=== PATIENT | male | born 1960 | race Two or more races ===

== ENCOUNTER 2017-12-29 17:49 | Inpatient (IN) | payer MEDICARE, OTHER ==
[~2017-12-29] VITALS: Ht 175.3 cm; Wt 121.6 kg
[2017-12-29 18:30] VITALS: BP 191/132
[2017-12-29] MEDS ORDERED: LORazepam Inj 2mg/ml 1ml IV ONE (18:30)
[2017-12-29] MEDS ORDERED: CLARITIN10 M2 ORAL (19:26)
[2017-12-29] MEDS ORDERED: LOTENSIN40 MG ORAL (19:26)
[2017-12-29] MEDS ORDERED: NICOTINE1 EAC1 TD (19:26)
[2017-12-29] MEDS ORDERED: FLONASE ALLERG9.9 ML NS (19:26)
[2017-12-29] MEDS ORDERED: DIGOXIN125 MCG ORAL (19:26)
[2017-12-29] MEDS ORDERED: SPIRONOLACTONE25 MG ORAL (19:26)
[2017-12-29] MEDS ORDERED: QUETIAPINE FUMA25 MG ORAL (19:26)
[2017-12-29] MEDS ORDERED: POTASSIUM CHLOR8 ME3 PO (19:26)
[2017-12-29] MEDS ORDERED: TRAMADOL HCL50 MG ORAL (19:26)
[2017-12-29] MEDS ORDERED: PROAIR HFA8.5 GM INH (19:26)
[2017-12-29] MEDS ORDERED: DULERA 100 MCG/13 GM INH (19:26)
[2017-12-29] MEDS ORDERED: AZITHROMYCIN250 MG ORAL (19:26)
[2017-12-29] MEDS ORDERED: DUONEB 0.5-3(2.53 ML HHN (19:26)
[2017-12-29] MEDS ORDERED: COREG25 MG ORAL (19:26)
[2017-12-29] MEDS ORDERED: METHADONE HCL10 MG PO (19:26)
[2017-12-29] MEDS ORDERED: HYDRALAZINE HC100 MG ORAL (19:26)
[2017-12-29 19:43] VITALS: BP 186/133
[2017-12-29 19:44] LABS: BASOPHILS % (AUTO) 0.6 % (0.0-2.0); HEMATOCRIT 47.1 % (42.0-52.0); HEMOGLOBIN 15.2 G/DL (14.2-18.0); LYMPHOCYTES % (AUTO) 14.7 % (20.0-45.0); MEAN CORPUSCULAR VOLUME 83 FL (80-99); MONOCYTES % (AUTO) 5.6 % (1.0-10.0); NEUTROPHILS % (AUTO) 78.1 % (45.0-75.0); PLATELET COUNT 258 K/UL (150-450); RED BLOOD COUNT 5.71 M/UL (4.70-6.10); RED CELL DISTRIBUTION WIDTH 14.8 % (11.6-14.8); WHITE BLOOD COUNT 12.7 K/UL (4.8-10.8)
[2017-12-29 19:58] LABS: ANION GAP 10 mmol/L (5-15); BLOOD UREA NITROGEN 30 mg/dL (7-18); CALCIUM 9.4 MG/DL (8.5-10.1); CARBON DIOXIDE 24 MMOL/L (21-32); CHLORIDE 102 MMOL/L (98-107); CREATININE 1.7 MG/DL (0.55-1.30); POTASSIUM 4.3 MMOL/L (3.5-5.1); SODIUM 136 MMOL/L (136-145)
[2017-12-29 20:13] LABS: ALANINE AMINOTRANSFERASE 26 U/L (12-78); ALBUMIN 3.9 G/DL (3.4-5.0); ALBUMIN/GLOBULIN RATIO 0.8 (1.0-2.7); ALKALINE PHOSPHATASE 86 U/L (46-116); ASPARTATE AMINO TRANSFERASE 27 U/L (15-37); BILIRUBIN,TOTAL 1.1 MG/DL (0.2-1.0); CKMB 1.6 NG/ML (0.0-3.6); CREATINE KINASE 316 U/L (26-308)
[2017-12-29 20:22] VITALS: BP 158/133
[2017-12-29 20:22] LABS: BILIRUBIN,DIRECT 0.3 MG/DL (0.0-0.3)
[2017-12-29 21:42] VITALS: BP 149/73
--- NOTE | 2017-12-29 21:45 | Emergency Room Report ---
History of Present Illness General Chief Complaint: Dyspnea/Respdistress Source: Patient, EMS Present Illness HPI 57-year-old male presents ED for evaluation. Patient brought in by EMS complaining of shortness of breath. States started after he smoked cigarette today. Per EMS blood pressure is high. Notes history of hypertension but states he is not compliant with his medications. Denies any chest pain. Denies drug use. No other aggravating relieving factors. Denies any other associated symptoms Allergies: Coded Allergies: No Known Allergies (Unverified , 12/29/17) Patient History Past Medical History: HTN, CHF, psych hx Past Surgical History: none Pertinent Family History: none Social History: Reports: smoking; Denies: alcohol use, drug use Immunizations: UTD Reviewed Nursing Documentation: PMH: Agreed; PSxH: Agreed Nursing Documentation-PMH Hx Cardiac Problems: Yes - CHF Hx Hypertension: Yes History Of Psychiatric Problem: Yes Review of Systems All Other Systems: negative except mentioned in HPI Physical Exam Vital Signs Date Time Temp Pulse Resp B/P (MAP) Pulse Ox O2 Delivery O2 Flow Rate FiO2 12/29/17 17:41 98.7 100 18 200/104 98 Room Air 98.8 12/29/17 19:43 4.0 Sp02 EP Interpretation: reviewed, normal General Appearance: alert, GCS 15, non-toxic, mild distress Head: normocephalic, atraumatic Eyes: bilateral eye normal inspection, bilateral eye PERRL ENT: hearing grossly normal, normal pharynx, no angioedema, normal voice Neck: full range of motion, supple/symm/no masses Respiratory: chest non-tender, decreased breath sounds, crackles, speaking full sentences Cardiovascular #1: regular rate, rhythm, no edema Cardiovascular #2: 2+ carotid (R), 2+ carotid (L), 2+ radial (R), 2+ radial (L) , 2+ dorsalis pedis (R), 2+ dorsalis pedis (L) Gastrointestinal: normal bowel sounds, non tender, soft, non-distended, no guarding, no rebound Rectal: deferred Genitourinary: normal inspection, no CVA tenderness Musculoskeletal: back normal, gait/station normal, normal range of motion, non- tender Neurologic: alert, oriented x3, responsive, motor strength/tone normal, sensory intact, speech normal Psychiatric: judgement/insight normal, memory normal, mood/affect normal, no suicidal/homicidal ideation Reflexes: 3+ bicep (R), 3+ bicep (L), 3+ tricep (R), 3+ tricep (L), 3+ knee (R) , 3+ knee (L) Skin: normal color, no rash, warm/dry, well hydrated Lymphatic: no adenopathy Medical Decision Making Diagnostic Impression: Primary Impression: CHF exacerbation Qualified Codes: I50.9 - Heart failure, unspecified Additional Impressions: Uncontrolled hypertension Renal insufficiency ER Course Hospital Course 57-year-old male presents ED complaining of shortness of breath, BP elevated Differential diagnoses include: TN/unstable angina, contusion, muscle strain, PTX, rib fracture Clinical course Patient placed on stretcher. on manager cardiac cath. After initial history and physical I ordered labs, EKG, chest x-ray labs reviewed- no leukocytosis, hemoglobin/hematocrit stable, creatinine elevated, troponins 0.166, BNP elevated Chest x-ray- pulmonary congestion, cardiomegaly EKG - NSR,no acute ischemic changes interpreted by me denies chest pain. given aspirin. given hydralazine for elevated BP. Lasix given. Case discussed with Dr. Downs and he agreed to accept the patient to his service for further care and support I. I feel this is a highly complex case requiring extensive working including EKG/Rhythm strip, Xray/CT/US, Blood/urine lab work, repeat exams while in ED, and administration of strong opiates/narcotics for pain control, admission to hospital or close patient follow up. Diagnosis - CHF exacerbation, renal insufficiency, uncontrolled hypertension admitted to telemetry in serious condition Labs Test 12/29/17 19:31 White Blood Count 12.7 K/UL (4.8-10.8) Red Blood Count 5.71 M/UL (4.70-6.10) Hemoglobin 15.2 G/DL (14.2-18.0) Hematocrit 47.1 % (42.0-52.0) Mean Corpuscular Volume 83 FL (80-99) Mean Corpuscular Hemoglobin 26.6 PG (27.0-31.0) Mean Corpuscular Hemoglobin Concent 32.2 G/DL (32.0-36.0) Red Cell Distribution Width 14.8 % (11.6-14.8) Platelet Count 258 K/UL (150-450) Mean Platelet Volume 6.8 FL (6.5-10.1) Neutrophils (%) (Auto) 78.1 % (45.0-75.0) Lymphocytes (%) (Auto) 14.7 % (20.0-45.0) Monocytes (%) (Auto) 5.6 % (1.0-10.0) Eosinophils (%) (Auto) 1.0 % (0.0-3.0) Basophils (%) (Auto) 0.6 % (0.0-2.0) Sodium Level 136 MMOL/L (136-145) Potassium Level 4.3 MMOL/L (3.5-5.1) Chloride Level 102 MMOL/L (98-107) Carbon Dioxide Level 24 MMOL/L (21-32) Anion Gap 10 mmol/L (5-15) Blood Urea Nitrogen 30 mg/dL (7-18) Creatinine 1.7 MG/DL (0.55-1.30) Estimat Glomerular Filtration Rate 42.1 mL/min (>60) Glucose Level 117 MG/DL (74-106) Calcium Level 9.4 MG/DL (8.5-10.1) Total Bilirubin 1.1 MG/DL (0.2-1.0) Direct Bilirubin 0.3 MG/DL (0.0-0.3) Aspartate Amino Transf (AST/SGOT) 27 U/L (15-37) Alanine Aminotransferase (ALT/SGPT) 26 U/L (12-78) Alkaline Phosphatase 86 U/L (46-116) Total Creatine Kinase 316 U/L (26-308) Creatine Kinase MB 1.6 NG/ML (0.0-3.6) Creatine Kinase MB Relative Index 0.5 Troponin I 0.166 ng/mL (0.000-0.056) Pro-B-Type Natriuretic Peptide 22699 pg/mL (0-125) Total Protein 8.6 G/DL (6.4-8.2) Albumin 3.9 G/DL (3.4-5.0) Globulin 4.7 g/dL Albumin/Globulin Ratio 0.8 (1.0-2.7) EKG Diagnostic Results Rate: normal Rhythm: NSR ST Segments: no acute changes ASA given to the pt in ED: Yes Rhythm Strip Diag. Results EP Interpretation: yes Rhythm: NSR, no PVC's, no ectopy Chest X-Ray Diagnostic Results Chest X-Ray Diagnostic Results : Chest X-Ray Ordered: Yes # of Views/Limited/Complete: 1 View Indication: Shortness of Breath EP Interpretation: Yes Interpretation: no pneumothorax, other - cardiomegaly. bilateral pulmonary congestion Impression: Other - chf exacerbation Electronically Signed by: Electronically signed by Lee Sheffield MD Last Vital Signs Date Time Temp Pulse Resp B/P (MAP) Pulse Ox O2 Delivery O2 Flow Rate FiO2 12/29/17 21:15 155/98 12/29/17 20:22 98.6 94 40 96 Nasal Cannula 4.0 98.6 97 Status: improved Disposition: ADMITTED INPATIENT Condition: Serious Referrals: NON PHYSICIAN (PCP) Lee Sheffield MD Dec 29, 2017 21:45
[2017-12-29 22:30] VITALS: BP 110/91
[2017-12-29] MEDS ORDERED: Albuterol 90mcg Inhaler 8gm INH PRN (23:00)
[2017-12-29] MEDS ORDERED: Albuterol/Ipratropium 3ml neb HHN PRN (23:00)
[2017-12-29] MEDS ORDERED: Hydromorphone 0.5mg/0.5ml inj IVP PRN (23:30)
[2017-12-29] MEDS ORDERED: DiphenhydrAMINE 50mg/ml Inj IVP PRN (23:30)
[2017-12-29] MEDS ORDERED: traMADol 50mg tab ORAL PRN (23:45)
[2017-12-30] VITALS: BP 163/117
[2017-12-30] MEDS ORDERED: Ipratropium 0.02% Inh Soln 2.5ml UD HHN SCH (01:00)
[2017-12-30 04:00] VITALS: BP 149/115
[2017-12-30] MEDS: HydrALAZINE 50mg tab ORAL SCH ×3 (06:14→21:52)
[2017-12-30 08:00] VITALS: BP 131/83
[2017-12-30 08:03] LABS: BASOPHILS % (AUTO) 0.6 % (0.0-2.0); EOSINOPHILS % (AUTO) 3.3 % (0.0-3.0); HEMATOCRIT 42.9 % (42.0-52.0); HEMOGLOBIN 14.3 G/DL (14.2-18.0); LYMPHOCYTES % (AUTO) 21.6 % (20.0-45.0); MEAN CORPUSCULAR VOLUME 82 FL (80-99); MONOCYTES % (AUTO) 9.5 % (1.0-10.0); PLATELET COUNT 251 K/UL (150-450); RED BLOOD COUNT 5.22 M/UL (4.70-6.10); RED CELL DISTRIBUTION WIDTH 14.9 % (11.6-14.8); WHITE BLOOD COUNT 10.1 K/UL (4.8-10.8)
[2017-12-30] MEDS: Azithromycin 250mg tab ORAL SCH (08:40)
[2017-12-30] MEDS: Spironolactone 25mg tab ORAL SCH (08:40)
[2017-12-30] MEDS: Heparin 5000 units/ml inj SUBQ SCH ×3 (08:51→18:00)
[2017-12-30] MEDS ORDERED: Carvedilol 25mg Tab ORAL SCH (09:00)
[2017-12-30] MEDS: Flonase Nasal Inhaler 16gm NASAL SCH (09:11)
--- NOTE | 2017-12-30 09:24 | Cardiac Electrophysiology PN ---
Subjective Subjective [id number] Objective Last 24 Hour Vital Signs Date Time Temp Pulse Resp B/P (MAP) Pulse Ox O2 Delivery O2 Flow Rate FiO2 12/30/17 08:41 92 12/30/17 08:41 90 149/115 12/30/17 08:41 149/115 12/30/17 07:35 97 Nasal Cannula 2.0 28 12/30/17 07:35 90 20 Nasal Cannula 2.0 28 12/30/17 07:35 Nasal Cannula 2.0 28 12/30/17 06:14 149/115 12/30/17 04:00 88 12/30/17 04:00 98.2 75 20 149/115 90 Nasal Cannula 3.0 98.2 12/30/17 00:00 95.2 92 20 163/117 96 Nasal Cannula 3.0 95.2 12/30/17 00:00 82 12/29/17 23:37 88 20 99 Nasal Cannula 2.0 28 12/29/17 23:27 Nasal Cannula 2.0 28 12/29/17 23:27 87 20 97 Nasal Cannula 2.0 28 12/29/17 23:27 97 Nasal Cannula 2.0 28 12/29/17 23:27 87 20 Nasal Cannula 2.0 28 12/29/17 22:46 91 12/29/17 22:36 98.0 104 19 132/61 97 Nasal Cannula 4.0 98.0 89 94 12/29/17 22:30 98.2 89 20 110/91 95 Nasal Cannula 3.0 98.2 12/29/17 21:42 98.0 89 19 149/73 97 Nasal Cannula 98.0 12/29/17 21:15 155/98 12/29/17 20:22 98.6 94 40 158/133 96 Nasal Cannula 4.0 98.6 97 12/29/17 19:43 97 Nasal Cannula 4.0 12/29/17 19:43 98.6 97 40 186/133 89 Nasal Cannula 98.6 12/29/17 18:30 98.6 104 31 191/132 93 Room Air 98.6 12/29/17 18:30 104 31 Room Air 12/29/17 17:41 98.7 100 18 200/104 98 Room Air 98.8 Intake and Output 12/29/17 12/30/17 19:00 07:00 Intake Total 0 ml 0 ml Output Total 400 ml Balance 0 ml -400 ml Intake Oral 0 ml 0 ml Output Urine Total 400 ml # Voids 6 Laboratory Tests Test 12/29/17 19:31 12/29/17 21:24 12/30/17 07:10 White Blood Count 12.7 K/UL (4.8-10.8) H 10.1 K/UL (4.8-10.8) Red Blood Count 5.71 M/UL (4.70-6.10) 5.22 M/UL (4.70-6.10) Hemoglobin 15.2 G/DL (14.2-18.0) 14.3 G/DL (14.2-18.0) Hematocrit 47.1 % (42.0-52.0) 42.9 % (42.0-52.0) Mean Corpuscular Volume 83 FL (80-99) 82 FL (80-99) Mean Corpuscular Hemoglobin 26.6 PG (27.0-31.0) L 27.3 PG (27.0-31.0) Mean Corpuscular Hemoglobin Concent 32.2 G/DL (32.0-36.0) 33.2 G/DL (32.0-36.0) Red Cell Distribution Width 14.8 % (11.6-14.8) 14.9 % (11.6-14.8) H Platelet Count 258 K/UL (150-450) 251 K/UL (150-450) Mean Platelet Volume 6.8 FL (6.5-10.1) 7.0 FL (6.5-10.1) Neutrophils (%) (Auto) 78.1 % (45.0-75.0) H 65.0 % (45.0-75.0) Lymphocytes (%) (Auto) 14.7 % (20.0-45.0) L 21.6 % (20.0-45.0) Monocytes (%) (Auto) 5.6 % (1.0-10.0) 9.5 % (1.0-10.0) Eosinophils (%) (Auto) 1.0 % (0.0-3.0) 3.3 % (0.0-3.0) H Basophils (%) (Auto) 0.6 % (0.0-2.0) 0.6 % (0.0-2.0) Sodium Level 136 MMOL/L (136-145) Potassium Level 4.3 MMOL/L (3.5-5.1) Chloride Level 102 MMOL/L (98-107) Carbon Dioxide Level 24 MMOL/L (21-32) Anion Gap 10 mmol/L (5-15) Blood Urea Nitrogen 30 mg/dL (7-18) H Creatinine 1.7 MG/DL (0.55-1.30) H Estimat Glomerular Filtration Rate 42.1 mL/min (>60) Glucose Level 117 MG/DL (74-106) H Calcium Level 9.4 MG/DL (8.5-10.1) Total Bilirubin 1.1 MG/DL (0.2-1.0) H Direct Bilirubin 0.3 MG/DL (0.0-0.3) Aspartate Amino Transf (AST/SGOT) 27 U/L (15-37) Alanine Aminotransferase (ALT/SGPT) 26 U/L (12-78) Alkaline Phosphatase 86 U/L (46-116) Total Creatine Kinase 316 U/L (26-308) H Creatine Kinase MB 1.6 NG/ML (0.0-3.6) Creatine Kinase MB Relative Index 0.5 Troponin I 0.166 ng/mL (0.000-0.056) 0.184 ng/mL (0.000-0.056) Pro-B-Type Natriuretic Peptide 15755 pg/mL (0-125) H 65859 pg/mL (0-125) H Total Protein 8.6 G/DL (6.4-8.2) H Albumin 3.9 G/DL (3.4-5.0) Globulin 4.7 g/dL Albumin/Globulin Ratio 0.8 (1.0-2.7) L Urine Opiates Screen Negative (NEGATIVE) Urine Barbiturates Screen Negative (NEGATIVE) Phencyclidine (PCP) Screen Negative (NEGATIVE) Urine Amphetamines Screen Negative (NEGATIVE) Urine Benzodiazepines Screen Negative (NEGATIVE) Urine Cocaine Screen Positive (NEGATIVE) H Urine Marijuana (THC) Screen Negative (NEGATIVE) Iron Gannon MD Dec 30, 2017 09:23
--- NOTE | 2017-12-30 10:16 | History and Physical ---
History of Present Illness General Date patient seen: Dec 30, 2017 Time patient seen: 10:16 Reason for Hospitalization: Dyspnea/Respdistress Present Illness HPI 57y/o male with pmh of HTN, CHF, substance abuse, opioid dependence who presents with SOB. Pt is poor historian. Pt states symptoms started after smoking cigarettes yesterday. Pt non-compliant with medications. Also noted intermittent chest pain on presentation, but currently declines. Denies f/c, n/v , d/c, abd pain, cough. +BLE swelling, orthopnea, PND. C/o bleeding lesion on roof of mouth. In ED, pt noted to be in CHF w/ BNP 16,000's and CXR w/ PVC. Pt given lasix IV. SBP 200s, given hydralazine IV. Also w/ elevated troponin and given ASA 325mg. Utox + for cocaine Allergies: Coded Allergies: No Known Allergies (Unverified , 12/29/17) Medication History Scheduled Albuterol Sulfate* (Proair Hfa*), 1 PUFF INH Q6H, (Reported) Azithromycin* (Zithromax*), 250 MG ORAL DAILY, (Reported) Benazepril Hcl* (Lotensin*), 40 MG ORAL DAILY, (Reported) Carvedilol (Coreg), 25 MG ORAL EVERY 12 HOURS, (Reported) Digoxin* (Digoxin*), 250 MCG ORAL DAILY, (Reported) Hydralazine Hcl* (Hydralazine Hcl*), 100 MG ORAL EVERY 8 HOURS, (Reported) Loratadine (Claritin), 10 MG ORAL DAILY, (Reported) Methadone Hcl* (Methadone*), 10 MG PO DAILY, (Reported) Mometasone/Formoterol (Dulera 100 Mcg/5 Mcg Inhaler), 2 PUFFS INH EVERY 12 HOURS , (Reported) Quetiapine Fumarate* (Seroquel*), 50 MG ORAL BEDTIME, (Reported) Spironolactone* (Aldactone*), 25 MG ORAL DAILY, (Reported) Scheduled PRN Tramadol Hcl* (Ultram*), 50 MG ORAL Q6H PRN for For Pain, (Reported) Miscellaneous Medications Fluticasone Propionate (Flonase Allergy Relief), 9.9 ML NS, (Reported) Ipratropium/Albuterol Sulfate (DuoNeb 0.5-3(2.5)mg/3ml), 3 ML HHN, (Reported) Nicotine (Nicotine), 1 EACH TD, (Reported) Potassium Chloride (Potassium Chloride), 20 MEQ PO, (Reported) Patient History History Provided By: Patient, Medical Record Healthcare decision maker Resuscitation status Full Code Advanced Directive on File Past Medical/Surgical History Past Medical/Surgical History: (1) Substance abuse (2) Tobacco abuse (3) HTN (hypertension) (4) CHF (congestive heart failure) Family History Family History: Patient reports no known family medical history. Social History Social History: (1) Smokes 1ppd x 44 years and now cut down to 3cig/d per pt (2) Pt states he used cocaine 3 week ago but tells another provider he used it 2 days ago (3) Lives with family Review of Systems Constitutional: Reports: weakness Eye: Reports: no symptoms ENT: Reports: no symptoms Respiratory: Reports: shortness of breath Cardiovascular: Reports: chest pain, edema Gastrointestinal: Reports: no symptoms Genitourinary: Reports: no symptoms Musculoskeletal: Reports: no symptoms Skin: Reports: no symptoms Psychiatric: Reports: no symptoms Neurological: Reports: no symptoms Endocrine: Reports: no symptoms Hematologic/Lymphatic: Reports: no symptoms Physical Exam Physical Exam Narrative General: alert, cooperative, no distress, appears stated age Head: normocephalic, without obvious abnormality, atraumatic Eyes: conjunctivae/corneas clear. PERRL, EOM's intact Throat: lips, mucosa, and tongue normal. MMM Neck: supple, symmetrical, trachea midline, and +JVD Lungs: +crackles b/l Heart: regular rate and rhythm, S1, S2 normal, no murmur, click, rub or gallop Abdomen: soft, non-tender, non-distended, bowel sounds normal; Extremities: extremities normal, atraumatic, no cyanosis, 1-2+ BLE pitting edema Pulses: 2+ and symmetric Skin: skin color, texture, turgor normal; no rashes or lesions Neurologic: grossly normal, no focal deficits Last 24 Hour Vital Signs Date Time Temp Pulse Resp B/P (MAP) Pulse Ox O2 Delivery O2 Flow Rate FiO2 12/30/17 08:41 92 12/30/17 08:41 90 149/115 12/30/17 08:41 149/115 12/30/17 08:00 89 12/30/17 08:00 98.1 95 20 131/83 92 Nasal Cannula 3.0 98.1 12/30/17 07:35 97 Nasal Cannula 2.0 28 12/30/17 07:35 90 20 Nasal Cannula 2.0 28 12/30/17 07:35 Nasal Cannula 2.0 28 12/30/17 06:14 149/115 12/30/17 04:00 88 12/30/17 04:00 98.2 75 20 149/115 90 Nasal Cannula 3.0 98.2 12/30/17 00:00 95.2 92 20 163/117 96 Nasal Cannula 3.0 95.2 12/30/17 00:00 82 12/29/17 23:37 88 20 99 Nasal Cannula 2.0 28 12/29/17 23:27 Nasal Cannula 2.0 28 12/29/17 23:27 87 20 97 Nasal Cannula 2.0 28 12/29/17 23:27 97 Nasal Cannula 2.0 28 12/29/17 23:27 87 20 Nasal Cannula 2.0 28 12/29/17 22:46 91 12/29/17 22:36 98.0 104 19 132/61 97 Nasal Cannula 4.0 98.0 89 94 12/29/17 22:30 98.2 89 20 110/91 95 Nasal Cannula 3.0 98.2 12/29/17 21:42 98.0 89 19 149/73 97 Nasal Cannula 98.0 12/29/17 21:15 155/98 12/29/17 20:22 98.6 94 40 158/133 96 Nasal Cannula 4.0 98.6 97 12/29/17 19:43 97 Nasal Cannula 4.0 12/29/17 19:43 98.6 97 40 186/133 89 Nasal Cannula 98.6 12/29/17 18:30 98.6 104 31 191/132 93 Room Air 98.6 12/29/17 18:30 104 31 Room Air 12/29/17 17:41 98.7 100 18 200/104 98 Room Air 98.8 Intake and Output 12/29/17 12/30/17 19:00 07:00 Intake Total 0 ml 0 ml Output Total 400 ml Balance 0 ml -400 ml Intake Oral 0 ml 0 ml Output Urine Total 400 ml # Voids 6 Laboratory Tests Test 12/29/17 19:31 12/29/17 21:24 12/30/17 07:10 White Blood Count 12.7 K/UL (4.8-10.8) H 10.1 K/UL (4.8-10.8) Red Blood Count 5.71 M/UL (4.70-6.10) 5.22 M/UL (4.70-6.10) Hemoglobin 15.2 G/DL (14.2-18.0) 14.3 G/DL (14.2-18.0) Hematocrit 47.1 % (42.0-52.0) 42.9 % (42.0-52.0) Mean Corpuscular Volume 83 FL (80-99) 82 FL (80-99) Mean Corpuscular Hemoglobin 26.6 PG (27.0-31.0) L 27.3 PG (27.0-31.0) Mean Corpuscular Hemoglobin Concent 32.2 G/DL (32.0-36.0) 33.2 G/DL (32.0-36.0) Red Cell Distribution Width 14.8 % (11.6-14.8) 14.9 % (11.6-14.8) H Platelet Count 258 K/UL (150-450) 251 K/UL (150-450) Mean Platelet Volume 6.8 FL (6.5-10.1) 7.0 FL (6.5-10.1) Neutrophils (%) (Auto) 78.1 % (45.0-75.0) H 65.0 % (45.0-75.0) Lymphocytes (%) (Auto) 14.7 % (20.0-45.0) L 21.6 % (20.0-45.0) Monocytes (%) (Auto) 5.6 % (1.0-10.0) 9.5 % (1.0-10.0) Eosinophils (%) (Auto) 1.0 % (0.0-3.0) 3.3 % (0.0-3.0) H Basophils (%) (Auto) 0.6 % (0.0-2.0) 0.6 % (0.0-2.0) Sodium Level 136 MMOL/L (136-145) Potassium Level 4.3 MMOL/L (3.5-5.1) Chloride Level 102 MMOL/L (98-107) Carbon Dioxide Level 24 MMOL/L (21-32) Anion Gap 10 mmol/L (5-15) Blood Urea Nitrogen 30 mg/dL (7-18) H Creatinine 1.7 MG/DL (0.55-1.30) H Estimat Glomerular Filtration Rate 42.1 mL/min (>60) Glucose Level 117 MG/DL (74-106) H Calcium Level 9.4 MG/DL (8.5-10.1) Total Bilirubin 1.1 MG/DL (0.2-1.0) H Direct Bilirubin 0.3 MG/DL (0.0-0.3) Aspartate Amino Transf (AST/SGOT) 27 U/L (15-37) Alanine Aminotransferase (ALT/SGPT) 26 U/L (12-78) Alkaline Phosphatase 86 U/L (46-116) Total Creatine Kinase 316 U/L (26-308) H Creatine Kinase MB 1.6 NG/ML (0.0-3.6) Creatine Kinase MB Relative Index 0.5 Troponin I 0.166 ng/mL (0.000-0.056) 0.184 ng/mL (0.000-0.056) Pro-B-Type Natriuretic Peptide 23803 pg/mL (0-125) H 63060 pg/mL (0-125) H Total Protein 8.6 G/DL (6.4-8.2) H Albumin 3.9 G/DL (3.4-5.0) Globulin 4.7 g/dL Albumin/Globulin Ratio 0.8 (1.0-2.7) L Urine Opiates Screen Negative (NEGATIVE) Urine Barbiturates Screen Negative (NEGATIVE) Phencyclidine (PCP) Screen Negative (NEGATIVE) Urine Amphetamines Screen Negative (NEGATIVE) Urine Benzodiazepines Screen Negative (NEGATIVE) Urine Cocaine Screen Positive (NEGATIVE) H Urine Marijuana (THC) Screen Negative (NEGATIVE) Height (Feet): 5 Height (Inches): 9.00 Weight (Pounds): 268 Medications Current Medications Medications (Trade) Dose Ordered Sig/Nathan Route PRN Reason Start Time Stop Time Status Last Admin Dose Admin Acetaminophen (Tylenol) 650 mg Q6H PRN ORAL Mild Pain/Temp > 100.5 12/29/17 23:15 01/28/18 23:14 Albuterol Sulfate (Proventil MDI) 1 puff Q6HR PRN INH Shortness of Breath 12/29/17 23:00 01/28/18 22:59 Albuterol/ Ipratropium (Albuterol/ Ipratropium) 3 ml Q6HR PRN HHN Shortness of Breath 12/29/17 23:00 01/03/18 22:59 12/29/17 23:27 Amlodipine Besylate (Norvasc) 10 mg DAILY ORAL 12/31/17 09:00 01/30/18 08:59 Aspirin (ASA) 325 mg DAILY ORAL 12/30/17 09:00 01/29/18 08:59 12/30/17 08:41 Azithromycin (Zithromax) 250 mg DAILY ORAL 12/30/17 09:00 01/06/18 08:59 12/30/17 08:40 Benazepril HCl (Lotensin) 40 mg DAILY ORAL 12/30/17 09:00 01/29/18 08:59 12/30/17 08:41 Digoxin (Lanoxin) 0.25 mg DAILY ORAL 12/30/17 09:00 01/29/18 08:59 12/30/17 08:41 Diphenhydramine HCl (Benadryl) 25 mg Q6H PRN IVP Itching 12/29/17 23:30 01/28/18 23:29 Fexofenadine HCl (Paige) 60 mg TWICE A DAY ORAL 12/30/17 09:00 01/29/18 08:59 12/30/17 09:11 Fluticasone Propionate (Flonase) 2 spray DAILY NASAL 12/30/17 09:00 01/29/18 08:59 12/30/17 09:11 Heparin Sodium (Porcine) (Heparin 5000 units/ml) 5,000 units TID SUBQ 12/30/17 09:00 01/29/18 08:59 12/30/17 08:51 Hydralazine HCl (Apresoline) 10 mg Q2H PRN IV For High Blood Pressure 12/30/17 09:30 01/29/18 09:29 Hydralazine HCl (Apresoline) 100 mg Q8HR ORAL 12/30/17 06:00 01/29/18 05:59 12/30/17 06:14 Hydromorphone HCl (Dilaudid) 0.5 mg Q4H PRN IVP For Moderate to Severe Pain 12/29/17 23:30 01/05/18 23:29 Methadone HCl (Methadone HCl) 10 mg DAILY ORAL 12/30/17 09:00 01/06/18 08:59 12/30/17 08:40 Mometasone Furoate (Elocon) 2 applic Q12HR TOPIC 12/30/17 09:00 01/29/18 08:59 12/30/17 09:11 Nicotine (Nicoderm) 1 patch Q24H TDERMAL 12/30/17 01:00 01/29/18 00:59 12/30/17 02:06 Ondansetron HCl (Zofran) 4 mg Q8HR PRN IVP Nausea & Vomiting 12/29/17 23:15 01/28/18 23:14 Potassium Chloride (K-Dur) 20 meq DAILY ORAL 12/30/17 09:00 01/29/18 08:59 12/30/17 08:40 Quetiapine Fumarate (SEROquel) 50 mg BEDTIME ORAL 12/30/17 21:00 01/29/18 20:59 Spironolactone (Aldactone) 25 mg DAILY ORAL 12/30/17 09:00 01/29/18 08:59 12/30/17 08:40 Tramadol HCl (Ultram) 50 mg Q6H PRN ORAL pain 12/29/17 23:45 01/05/18 23:44 Assessment/Plan Problem List: (1) Acute on chronic combined systolic and diastolic heart failure ICD Codes: I50.43 - Acute on chronic combined systolic (congestive) and diastolic (congestive) heart failure SNOMED: 972200486741382 (2) NSTEMI (non-ST elevated myocardial infarction) ICD Codes: I21.4 - Non-ST elevation (NSTEMI) myocardial infarction SNOMED: 210827228 (3) Hypertensive urgency ICD Codes: I16.0 - Hypertensive urgency SNOMED: 989188744 (4) JAMIE vs JAMIE on CKD (unclear baseline SCr) (5) Cardiorenal syndrome ICD Codes: I13.10 - Hypertensive heart and chronic kidney disease without heart failure, with stage 1 through stage 4 chronic kidney disease, or unspecified chronic kidney disease SNOMED: 428890294 (6) Cocaine abuse Assessment & Plan: Utox + for cocaine ICD Codes: F14.10 - Cocaine abuse, uncomplicated SNOMED: 17409962 (7) Mass of oral cavity ICD Codes: K13.70 - Unspecified lesions of oral mucosa SNOMED: 241315576 (8) Hypertensive heart disease ICD Codes: I11.9 - Hypertensive heart disease without heart failure SNOMED: 41705363 Status: stable Assessment/Plan Admit to tele Cardiology consulted Trend trop/EKG Check TTE ASA, statin Check A1C, lipid panel, TSH Diurese w/ lasix 40mg IV BID Strict I/O's, daily weights Monitor lytes and replete Trend SCr closely Cont home aldactone, ACEI, digoxin Check BLE venous duplex Surgery consulted given bleeding lesion on roof of mouth Pain control, bowel regimen Supportive care Maintenance Plumber on tobacco and cocaine cessation CHF education prior to d/c Maintenance Plumber on medication compliance DVT Prophylaxis: SCD, HSQ Code Status: Full Hospital Classification Declaration: Based on this initial evaluation, and depending on the patient's clinical course, I anticipate that this patient will require hospitalization for 2-3 days for CHF and close respiratory/hemodynamic monitoring. Disposition: Once the patient is stable to leave the hospital, I anticipate the patient will likely be discharged to the following environment: home with HH vs SNF I spent 71 minutes on this patient's case, and >50% was dedicated to counseling and/or care coordination. Discussed with patient/family, nursing staff, SW/CM, cardiology regarding clinical status, treatment course, and disposition planning. Time of note may not reflect time of encounter. Marietta Nicolas M.D. Dec 30, 2017 10:16
[2017-12-30 12:00] VITALS: BP 111/72
--- NOTE | 2017-12-30 12:53 | Diagnostic Imaging Report ---
Indication: Dyspnea Comparison: None A single view chest radiograph was obtained. Findings: Interstitial edema demonstrated with cardiomegaly. Bones are unremarkable. IMPRESSION: CHF
[2017-12-30 16:00] VITALS: BP 110/72
--- NOTE | 2017-12-30 17:44 | Consultation ---
History of Present Illness General Date patient seen: Dec 30, 2017 Chief Complaint: Dyspnea/Respdistress Reason for Consultation: bleeding fungating mass in mouth Present Illness HPI 57 year old male [place] [facility] [place] after acute onset of SOB/ dyspnea. Please refer to admission notes for details. During admission complaining of bleeding in mouth and a palpable mass which causes discomfort. Seen by PCP and noted to be a bleeding fungating mass on soft palate. Surgery called to evaluate. patient otherwise well and SOB improving. heavy tobacco history. Allergies: Coded Allergies: No Known Allergies (Unverified , 12/29/17) Medication History Scheduled Albuterol Sulfate* (Proair Hfa*), 1 PUFF INH Q6H, (Reported) Azithromycin* (Zithromax*), 250 MG ORAL DAILY, (Reported) Benazepril Hcl* (Lotensin*), 40 MG ORAL DAILY, (Reported) Carvedilol (Coreg), 25 MG ORAL EVERY 12 HOURS, (Reported) Digoxin* (Digoxin*), 250 MCG ORAL DAILY, (Reported) Hydralazine Hcl* (Hydralazine Hcl*), 100 MG ORAL EVERY 8 HOURS, (Reported) Loratadine (Claritin), 10 MG ORAL DAILY, (Reported) Methadone Hcl* (Methadone*), 10 MG PO DAILY, (Reported) Mometasone/Formoterol (Dulera 100 Mcg/5 Mcg Inhaler), 2 PUFFS INH EVERY 12 HOURS , (Reported) Quetiapine Fumarate* (Seroquel*), 50 MG ORAL BEDTIME, (Reported) Spironolactone* (Aldactone*), 25 MG ORAL DAILY, (Reported) Scheduled PRN Tramadol Hcl* (Ultram*), 50 MG ORAL Q6H PRN for For Pain, (Reported) Miscellaneous Medications Fluticasone Propionate (Flonase Allergy Relief), 9.9 ML NS, (Reported) Ipratropium/Albuterol Sulfate (DuoNeb 0.5-3(2.5)mg/3ml), 3 ML HHN, (Reported) Nicotine (Nicotine), 1 EACH TD, (Reported) Potassium Chloride (Potassium Chloride), 20 MEQ PO, (Reported) Patient History History Provided By: Patient, Medical Record, PMD Healthcare decision maker Resuscitation status Full Code Advanced Directive on File Past Medical/Surgical History Past Medical/Surgical History: (1) Mass of oral cavity (2) SOB (shortness of breath) (3) CHF (congestive heart failure) (4) Renal insufficiency (5) CHF exacerbation (6) Uncontrolled hypertension Review of Systems All Other Systems: negative except mentioned in HPI Physical Exam General Appearance: no apparent distress, alert Lines, tubes and drains: peripheral HEENT: normocephalic, mucous membranes moist, other - 1cm fungating mass noted in midline soft palate oozing blood and friable. Neck: non-tender, normal alignment, other - no lymphadenopathy. Respiratory/Chest: no respiratory distress, no accessory muscle use Cardiovascular/Chest: normal peripheral pulses, normal rate Abdomen: normal bowel sounds, non tender, soft, no organomegaly, no mass Extremities: normal range of motion, non-tender, normal inspection, no calf tenderness Skin Exam: normal pigmentation, warm/dry Neurologic: alert, oriented x 3 Physical Exam Narrative full skin exam performed and head and neck exam performed and other than above normal Last 24 Hour Vital Signs Date Time Temp Pulse Resp B/P (MAP) Pulse Ox O2 Delivery O2 Flow Rate FiO2 12/30/17 16:00 97.9 68 19 110/72 97 Nasal Cannula 3.0 97.9 12/30/17 13:40 123/72 12/30/17 12:00 76 12/30/17 12:00 97.9 91 20 111/72 96 Nasal Cannula 3.0 97.9 12/30/17 08:41 92 12/30/17 08:41 90 149/115 12/30/17 08:41 149/115 12/30/17 08:00 89 12/30/17 08:00 98.1 95 20 131/83 92 Nasal Cannula 3.0 98.1 12/30/17 07:35 97 Nasal Cannula 2.0 28 12/30/17 07:35 90 20 Nasal Cannula 2.0 28 12/30/17 07:35 Nasal Cannula 2.0 28 12/30/17 06:14 149/115 12/30/17 04:00 88 12/30/17 04:00 98.2 75 20 149/115 90 Nasal Cannula 3.0 98.2 12/30/17 00:00 95.2 92 20 163/117 96 Nasal Cannula 3.0 95.2 12/30/17 00:00 82 12/29/17 23:37 88 20 99 Nasal Cannula 2.0 28 12/29/17 23:27 Nasal Cannula 2.0 28 12/29/17 23:27 87 20 97 Nasal Cannula 2.0 28 12/29/17 23:27 97 Nasal Cannula 2.0 28 12/29/17 23:27 87 20 Nasal Cannula 2.0 28 12/29/17 22:46 91 12/29/17 22:36 98.0 104 19 132/61 97 Nasal Cannula 4.0 98.0 89 94 12/29/17 22:30 98.2 89 20 110/91 95 Nasal Cannula 3.0 98.2 12/29/17 21:42 98.0 89 19 149/73 97 Nasal Cannula 98.0 12/29/17 21:15 155/98 12/29/17 20:22 98.6 94 40 158/133 96 Nasal Cannula 4.0 98.6 97 12/29/17 19:43 97 Nasal Cannula 4.0 12/29/17 19:43 98.6 97 40 186/133 89 Nasal Cannula 98.6 12/29/17 18:30 98.6 104 31 191/132 93 Room Air 98.6 12/29/17 18:30 104 31 Room Air 12/29/17 17:41 98.7 100 18 200/104 98 Room Air 98.8 Intake and Output 12/29/17 12/30/17 19:00 07:00 Intake Total 0 ml 0 ml Output Total 400 ml Balance 0 ml -400 ml Intake Oral 0 ml 0 ml Output Urine Total 400 ml # Voids 6 Laboratory Tests Test 12/29/17 19:31 12/29/17 21:24 12/30/17 07:10 12/30/17 11:53 White Blood Count 12.7 K/UL (4.8-10.8) H 10.1 K/UL (4.8-10.8) Red Blood Count 5.71 M/UL (4.70-6.10) 5.22 M/UL (4.70-6.10) Hemoglobin 15.2 G/DL (14.2-18.0) 14.3 G/DL (14.2-18.0) Hematocrit 47.1 % (42.0-52.0) 42.9 % (42.0-52.0) Mean Corpuscular Volume 83 FL (80-99) 82 FL (80-99) Mean Corpuscular Hemoglobin 26.6 PG (27.0-31.0) L 27.3 PG (27.0-31.0) Mean Corpuscular Hemoglobin Concent 32.2 G/DL (32.0-36.0) 33.2 G/DL (32.0-36.0) Red Cell Distribution Width 14.8 % (11.6-14.8) 14.9 % (11.6-14.8) H Platelet Count 258 K/UL (150-450) 251 K/UL (150-450) Mean Platelet Volume 6.8 FL (6.5-10.1) 7.0 FL (6.5-10.1) Neutrophils (%) (Auto) 78.1 % (45.0-75.0) H 65.0 % (45.0-75.0) Lymphocytes (%) (Auto) 14.7 % (20.0-45.0) L 21.6 % (20.0-45.0) Monocytes (%) (Auto) 5.6 % (1.0-10.0) 9.5 % (1.0-10.0) Eosinophils (%) (Auto) 1.0 % (0.0-3.0) 3.3 % (0.0-3.0) H Basophils (%) (Auto) 0.6 % (0.0-2.0) 0.6 % (0.0-2.0) Sodium Level 136 MMOL/L (136-145) Potassium Level 4.3 MMOL/L (3.5-5.1) Chloride Level 102 MMOL/L (98-107) Carbon Dioxide Level 24 MMOL/L (21-32) Anion Gap 10 mmol/L (5-15) Blood Urea Nitrogen 30 mg/dL (7-18) H Creatinine 1.7 MG/DL (0.55-1.30) H Estimat Glomerular Filtration Rate 42.1 mL/min (>60) Glucose Level 117 MG/DL (74-106) H Calcium Level 9.4 MG/DL (8.5-10.1) Total Bilirubin 1.1 MG/DL (0.2-1.0) H Direct Bilirubin 0.3 MG/DL (0.0-0.3) Aspartate Amino Transf (AST/SGOT) 27 U/L (15-37) Alanine Aminotransferase (ALT/SGPT) 26 U/L (12-78) Alkaline Phosphatase 86 U/L (46-116) Total Creatine Kinase 316 U/L (26-308) H Creatine Kinase MB 1.6 NG/ML (0.0-3.6) Creatine Kinase MB Relative Index 0.5 Troponin I 0.166 ng/mL (0.000-0.056) 0.184 ng/mL (0.000-0.056) 0.140 ng/mL (0.000-0.056) Pro-B-Type Natriuretic Peptide 94987 pg/mL (0-125) H 69474 pg/mL (0-125) H Total Protein 8.6 G/DL (6.4-8.2) H Albumin 3.9 G/DL (3.4-5.0) Globulin 4.7 g/dL Albumin/Globulin Ratio 0.8 (1.0-2.7) L Urine Opiates Screen Negative (NEGATIVE) Urine Barbiturates Screen Negative (NEGATIVE) Phencyclidine (PCP) Screen Negative (NEGATIVE) Urine Amphetamines Screen Negative (NEGATIVE) Urine Benzodiazepines Screen Negative (NEGATIVE) Urine Cocaine Screen Positive (NEGATIVE) H Urine Marijuana (THC) Screen Negative (NEGATIVE) Height (Feet): 5 Height (Inches): 9.00 Weight (Pounds): 268 Medications Current Medications Medications (Trade) Dose Ordered Sig/Nathan Route PRN Reason Start Time Stop Time Status Last Admin Dose Admin Acetaminophen (Tylenol) 650 mg Q6H PRN ORAL Mild Pain/Temp > 100.5 12/29/17 23:15 01/28/18 23:14 Albuterol Sulfate (Proventil MDI) 1 puff Q6HR PRN INH Shortness of Breath 12/29/17 23:00 01/28/18 22:59 Albuterol/ Ipratropium (Albuterol/ Ipratropium) 3 ml Q6HR PRN HHN Shortness of Breath 12/29/17 23:00 01/03/18 22:59 12/29/17 23:27 Amlodipine Besylate (Norvasc) 10 mg DAILY ORAL 12/31/17 09:00 01/30/18 08:59 Aspirin (ASA) 325 mg DAILY ORAL 12/30/17 09:00 01/29/18 08:59 12/30/17 08:41 Azithromycin (Zithromax) 250 mg DAILY ORAL 12/30/17 09:00 01/06/18 08:59 12/30/17 08:40 Benazepril HCl (Lotensin) 40 mg DAILY ORAL 12/30/17 09:00 01/29/18 08:59 12/30/17 08:41 Digoxin (Lanoxin) 0.25 mg DAILY ORAL 12/30/17 09:00 01/29/18 08:59 12/30/17 08:41 Diphenhydramine HCl (Benadryl) 25 mg Q6H PRN IVP Itching 12/29/17 23:30 01/28/18 23:29 Fexofenadine HCl (Paige) 60 mg TWICE A DAY ORAL 12/30/17 09:00 01/29/18 08:59 12/30/17 09:11 Fluticasone Propionate (Flonase) 2 spray DAILY NASAL 12/30/17 09:00 01/29/18 08:59 12/30/17 09:11 Heparin Sodium (Porcine) (Heparin 5000 units/ml) 5,000 units TID SUBQ 12/30/17 09:00 01/29/18 08:59 12/30/17 08:51 Hydralazine HCl (Apresoline) 10 mg Q2H PRN IV For High Blood Pressure 12/30/17 09:30 01/29/18 09:29 Hydralazine HCl (Apresoline) 100 mg Q8HR ORAL 12/30/17 06:00 01/29/18 05:59 12/30/17 13:40 Hydromorphone HCl (Dilaudid) 0.5 mg Q4H PRN IVP For Moderate to Severe Pain 12/29/17 23:30 01/05/18 23:29 Methadone HCl (Methadone HCl) 10 mg DAILY ORAL 12/30/17 09:00 01/06/18 08:59 12/30/17 08:40 Mometasone Furoate (Elocon) 2 applic Q12HR TOPIC 12/30/17 09:00 01/29/18 08:59 12/30/17 09:11 Nicotine (Nicoderm) 1 patch Q24H TDERMAL 12/30/17 01:00 01/29/18 00:59 12/30/17 02:06 Ondansetron HCl (Zofran) 4 mg Q8HR PRN IVP Nausea & Vomiting 12/29/17 23:15 01/28/18 23:14 Potassium Chloride (K-Dur) 20 meq DAILY ORAL 12/30/17 09:00 01/29/18 08:59 12/30/17 08:40 Quetiapine Fumarate (SEROquel) 50 mg BEDTIME ORAL 12/30/17 21:00 01/29/18 20:59 Spironolactone (Aldactone) 25 mg DAILY ORAL 12/30/17 09:00 01/29/18 08:59 12/30/17 08:40 Tramadol HCl (Ultram) 50 mg Q6H PRN ORAL pain 12/29/17 23:45 01/05/18 23:44 Assessment/Plan Problem List: (1) Mass of oral cavity Assessment & Plan: mass in oral cavity with oozing of blood. could potentially lead to aspiration. given tobacco history could potentially be malignant. or can possibly be torus palatinus. Will monitor for next 24hrs. if bleeding stops will have him follow with me as an outpatient and schedule for biopsy. if does not stop bleeding will do excisional biopsy and obtain hemostasis. thank you for this consult. will follow with recs. ICD Codes: K13.70 - Unspecified lesions of oral mucosa SNOMED: 257129771 Status: stable [email or web address] Dec 30, 2017 17:44
--- NOTE | 2017-12-30 18:00 | Consultation ---
DATE OF CONSULTATION: 12/30/2017 CARDIOLOGY CONSULTATION CONSULTING PHYSICIAN: Iron Gannon M.D. REFERRING PHYSICIAN: Amalia Selby M.D. REASON FOR CONSULTATION: Elevated troponin. HISTORY OF PRESENT ILLNESS: The patient is a 57-year-old -[place] gentleman with history of substance abuse including cocaine just two days ago as well as history of hypertension, who was brought to the emergency room complaining of shortness of breath. The patient has previous history of congestive heart failure, but has been consistently taking his medication. The patient did not have any chest pain. The patient also has history of psychiatric issue and was admitted and a Cardiology consultation was obtained as his blood pressure on admission was 200/104 and troponin was elevated. PAST MEDICAL HISTORY: 1. Hypertension. 2. Congestive heart failure. 3. History of psychosis. FAMILY HISTORY: Noncontributory. SOCIAL HISTORY: He admits to doing cocaine including last one just two days ago. REVIEW OF SYSTEMS: Performed and was negative other than what was mentioned in the history of present illness. PHYSICAL EXAMINATION: VITAL SIGNS: Blood pressure is 149/115, pulse is 90, respirations 18, and he is afebrile. HEAD AND NECK: Shows no JVD or carotid bruits. LUNGS: Clear. CARDIOVASCULAR: Shows regular S1 and S2 with no gallop. ABDOMEN: Soft. EXTREMITIES: A 1+ pitting edema. LABORATORY DATA: Labs show white count of 10.1, hemoglobin 14.2, hematocrit 42.9, and platelet count of 251,000. Sodium 136, potassium is 4.3, BUN of 30, creatinine 1.7, and glucose of 117. Troponin is 0.166 and 0.184. BNP is 17,000. ASSESSMENT AND PLAN: 1. Troponin elevation. The levels are flat. The patient does not have any chest pain, could be due to the patient's renal failure with creatinine of 1.7. His urine toxicology screen is also positive for cocaine. We will avoid beta-blockers at this time. His EKG showed sinus rhythm with left ventricular hypertrophy and left axis deviation, but no acute ST-T wave abnormalities. At this time, keep the patient on aspirin. I will discontinue Coreg in view of the patient's active cocaine use. We will watch him on telemetry. We will also order echocardiogram. 2. Congestive heart failure with BNP 17,000. Continue Lotensin 40 mg daily, digoxin 0.25 mg daily, hydralazine 100 mg t.i.d. He is also on Aldactone. I will add Norvasc 10 mg daily to his medical regimen. 3. Hypertension. Continue current heart failure therapy as well as Norvasc. 4. Psychosis. On Seroquel. 5. History of substance abuse. The patient is on methadone and his cocaine still is positive in his urine. Thank you very much, Dr. Selby, for allowing me to participate in the care of this patient. Please do not hesitate to contact me for any questions regarding my evaluation. Iron Gannon M.D. DR: FEROZ JOB#: [id number] CC:
[2017-12-30 20:00] VITALS: BP 125/88
[2017-12-31] VITALS: BP 115/62
[2017-12-31 04:00] VITALS: BP 118/81
[2017-12-31] MEDS: HydrALAZINE 50mg tab ORAL SCH ×3 (05:40→21:39)
[2017-12-31 08:00] VITALS: BP 129/66
[2017-12-31 08:13] LABS: BASOPHILS % (AUTO) 0.4 % (0.0-2.0); HEMATOCRIT 46.4 % (42.0-52.0); LYMPHOCYTES % (AUTO) 21.9 % (20.0-45.0); MEAN CORPUSCULAR VOLUME 83 FL (80-99); MONOCYTES % (AUTO) 7.4 % (1.0-10.0); NEUTROPHILS % (AUTO) 64.3 % (45.0-75.0); PLATELET COUNT 288 K/UL (150-450); RED BLOOD COUNT 5.59 M/UL (4.70-6.10); RED CELL DISTRIBUTION WIDTH 15.3 % (11.6-14.8); WHITE BLOOD COUNT 10.3 K/UL (4.8-10.8)
[2017-12-31] MEDS: Spironolactone 25mg tab ORAL SCH (08:31)
[2017-12-31] MEDS: Azithromycin 250mg tab ORAL SCH (08:31)
[2017-12-31] MEDS: Flonase Nasal Inhaler 16gm NASAL SCH (08:32)
[2017-12-31 08:35] LABS: ANION GAP 9 mmol/L (5-15); BLOOD UREA NITROGEN 37 mg/dL (7-18); CALCIUM 8.9 MG/DL (8.5-10.1); CARBON DIOXIDE 26 MMOL/L (21-32); CHLORIDE 101 MMOL/L (98-107); POTASSIUM 3.4 MMOL/L (3.5-5.1); SODIUM 136 MMOL/L (136-145)
[2017-12-31] MEDS: Heparin 5000 units/ml inj SUBQ SCH ×3 (08:35→18:00)
[2017-12-31 09:24] LABS: CHOLESTEROL 152 MG/DL (< 200); HDL CHOLESTEROL 23 MG/DL (40-60); PHOSPHORUS 4.5 MG/DL (2.5-4.9); TRIGLYCERIDES 91 MG/DL (30-150)
[2017-12-31 12:00] VITALS: BP 141/82
--- NOTE | 2017-12-31 15:03 | Cardiac Electrophysiology PN ---
Assessment/Plan Assessment/Plan 1. Troponin elevation. The levels are flat. The patient does not have any chest pain and likely due to the patient's renal failure with creatinine of 1.7. His urine toxicology screen is also positive for cocaine. We will avoid beta-blockers at this time. His EKG showed sinus rhythm with left ventricular hypertrophy and left axis deviation, but no acute ST-T wave abnormalities. At this time, keep the patient on aspirin. 2. Congestive heart failure with BNP 17,000. Ef 30-35%. Continue Lotensin 40 mg daily, digoxin 0.25 mg daily, hydralazine 100 mg t.i.d.and Lasix 40 po bid. Aldactone. 3. Hypertension. Continue current regimen and Norvasc 10 mg daily 4. Psychosis. On Seroquel. 5. History of substance abuse. The patient is on methadone and his cocaine still is positive in his urine. FELIX RN Subjective Subjective LE venous Duplex was negative. EF 30%.No chest pain. Wants to go home. Objective Last 24 Hour Vital Signs Date Time Temp Pulse Resp B/P (MAP) Pulse Ox O2 Delivery O2 Flow Rate FiO2 12/31/17 13:35 141/82 12/31/17 12:00 98.1 74 18 141/82 95 Room Air 98.1 12/31/17 08:32 80 129/66 12/31/17 08:31 80 12/31/17 08:31 129/66 12/31/17 08:25 Nasal Cannula 2.0 28 12/31/17 08:25 82 20 Nasal Cannula 2.0 28 12/31/17 08:25 95 Nasal Cannula 2.0 28 12/31/17 08:00 80 12/31/17 08:00 97.9 80 18 129/66 95 Nasal Cannula 3.0 97.9 12/31/17 05:40 126/73 12/31/17 04:00 68 12/31/17 04:00 97.7 70 20 118/81 98 Nasal Cannula 3.0 97.7 12/31/17 00:00 97.3 71 20 115/62 95 Nasal Cannula 3.0 97.3 12/31/17 00:00 70 12/30/17 21:52 125/88 12/30/17 21:43 96 Nasal Cannula 2.0 28 12/30/17 21:43 Nasal Cannula 2.0 28 12/30/17 21:43 80 20 Nasal Cannula 2.0 28 12/30/17 20:00 98.1 76 20 125/88 92 Nasal Cannula 3.0 98.1 12/30/17 20:00 78 12/30/17 16:00 62 12/30/17 16:00 97.9 68 19 110/72 97 Nasal Cannula 3.0 97.9 Intake and Output 12/30/17 12/31/17 19:00 07:00 Intake Total 600 ml Output Total 650 ml 900 ml Balance -650 ml -300 ml Intake Oral 600 ml Output Urine Total 650 ml 900 ml # Voids 2 3 Laboratory Tests Test 12/30/17 20:00 12/31/17 06:50 Troponin I 0.084 ng/mL (0.000-0.056) White Blood Count 10.3 K/UL (4.8-10.8) Red Blood Count 5.59 M/UL (4.70-6.10) Hemoglobin 15.0 G/DL (14.2-18.0) Hematocrit 46.4 % (42.0-52.0) Mean Corpuscular Volume 83 FL (80-99) Mean Corpuscular Hemoglobin 26.7 PG (27.0-31.0) L Mean Corpuscular Hemoglobin Concent 32.2 G/DL (32.0-36.0) Red Cell Distribution Width 15.3 % (11.6-14.8) H Platelet Count 288 K/UL (150-450) Mean Platelet Volume 7.0 FL (6.5-10.1) Neutrophils (%) (Auto) 64.3 % (45.0-75.0) Lymphocytes (%) (Auto) 21.9 % (20.0-45.0) Monocytes (%) (Auto) 7.4 % (1.0-10.0) Eosinophils (%) (Auto) 6.0 % (0.0-3.0) H Basophils (%) (Auto) 0.4 % (0.0-2.0) Sodium Level 136 MMOL/L (136-145) Potassium Level 3.4 MMOL/L (3.5-5.1) L Chloride Level 101 MMOL/L (98-107) Carbon Dioxide Level 26 MMOL/L (21-32) Anion Gap 9 mmol/L (5-15) Blood Urea Nitrogen 37 mg/dL (7-18) H Creatinine 2.0 MG/DL (0.55-1.30) H Estimat Glomerular Filtration Rate 34.9 mL/min (>60) Glucose Level 132 MG/DL (74-106) H Hemoglobin A1c 6.7 % (4.3-6.0) H Calcium Level 8.9 MG/DL (8.5-10.1) Phosphorus Level 4.5 MG/DL (2.5-4.9) Magnesium Level 1.9 MG/DL (1.8-2.4) Triglycerides Level 91 MG/DL (30-150) Cholesterol Level 152 MG/DL (< 200) LDL Cholesterol 117 mg/dL (<100) H HDL Cholesterol 23 MG/DL (40-60) L Cholesterol/HDL Ratio 6.6 (3.3-4.4) H Thyroid Stimulating Hormone (TSH) 3.232 uiU/mL (0.358-3.740) Objective HEAD AND NECK: Shows no JVD or carotid bruits. LUNGS: Clear. CARDIOVASCULAR: Shows regular S1 and S2 with no gallop. ABDOMEN: Soft. EXTREMITIES: A 1+ pitting edema. Iron Gannon MD Dec 31, 2017 15:03
--- NOTE | 2017-12-31 15:05 | Cardiology Report ---
APPROVED REPORT EKG Measurement Heart [id number] [place] [id number] Unusual P axis and short WA, probable junctional tachycardia Left axis deviation Incomplete right bundle branch block Minimal voltage criteria for LVH, may be normal variant Inferior infarct, age undetermined Anterolateral infarct, age undetermined Prolonged QT Abnormal ECG
[2017-12-31 16:00] VITALS: BP 141/85
[2017-12-31 20:00] VITALS: BP 124/87
[2017-12-31] MEDS: Furosemide 40mg tab ORAL SCH (20:41)
--- NOTE | 2017-12-31 23:03 | General Progress Note ---
Assessment/Plan Problem List: (1) Hypertensive heart disease ICD Codes: I11.9 - Hypertensive heart disease without heart failure SNOMED: 05342889 (2) JAMIE vs JAMIE on CKD (unclear baseline SCr) (3) Cardiorenal syndrome ICD Codes: I13.10 - Hypertensive heart and chronic kidney disease without heart failure, with stage 1 through stage 4 chronic kidney disease, or unspecified chronic kidney disease SNOMED: 481035784 (4) Hypertensive urgency ICD Codes: I16.0 - Hypertensive urgency SNOMED: 116134003 (5) NSTEMI (non-ST elevated myocardial infarction) ICD Codes: I21.4 - Non-ST elevation (NSTEMI) myocardial infarction SNOMED: 991756100 (6) Acute on chronic combined systolic and diastolic heart failure ICD Codes: I50.43 - Acute on chronic combined systolic (congestive) and diastolic (congestive) heart failure SNOMED: 757611891116458 (7) Cocaine abuse ICD Codes: F14.10 - Cocaine abuse, uncomplicated SNOMED: 50529189 (8) Smokes 1ppd x 44 years and now cut down to 3cig/d per pt (9) HTN (hypertension) ICD Codes: I10 - Essential (primary) hypertension SNOMED: 83919045 (10) Mass of oral cavity ICD Codes: K13.70 - Unspecified lesions of oral mucosa SNOMED: 625394276 (11) Tobacco abuse ICD Codes: Z72.0 - Tobacco use SNOMED: 424254449 (12) Lives with family SNOMED: 977732387 (13) Hypokalemia ICD Codes: E87.6 - Hypokalemia SNOMED: 05544206 Status: progressing Assessment/Plan Cardiology consulted EKG reviewed with no acute ST or T wave changes Trend trops, 0.16 --> 0.18 --> 0.14 --> 0.08, stabilizing Check TTE ASA, statin Check A1C, lipid panel, TSH LDL 117 Diurese w/ lasix 40mg IV BID --> unable to place IV in patient and patient refusing PICC. will switch from IV to lasix 40mg PO BID Strict I/O's, daily weights Monitor lytes and replete Trend SCr closely - 1.3 --> 1.7 Cont home aldactone, ACEI, digoxin, methadone Coreg dc'ed per cards given positive utox for cocaine abuse. Norvasc added instead. Check BLE venous duplex Surgery consulted given bleeding lesion on roof of mouth --> since bleeding stopped, patient recommended to follow up with gen. surgery as outpatient for biopsy and r/o oral malignancy Pain control, bowel regimen Supportive care Fitter Hand on tobacco and cocaine cessation CHF education prior to d/c Fitter Hand on medication compliance DVT Prophylaxis: SCD, HSQ Code Status: Full Hospital Classification Declaration: Based on this initial evaluation, and depending on the patient's clinical course, I anticipate that this patient will require hospitalization for 2-3 days for CHF and close respiratory/hemodynamic monitoring. Disposition: Once the patient is stable to leave the hospital, I anticipate the patient will likely be discharged to the following environment: home with HH I spent 31 minutes on this patient's case, and >50% was dedicated to counseling and/or care coordination. Discussed with patient/family, nursing staff, SW/CM, cardiology regarding clinical status, treatment course, and disposition planning. Time of note may not reflect time of encounter. Subjective Date patient seen: Dec 31, 2017 Time patient seen: 11:23 Allergies: Coded Allergies: No Known Allergies (Unverified , 12/29/17) Subjective - doing well. denies cp, sob today - unable to put peripheral IV line in. patient states he does not want a PICC because he wants to go home - Cr uptrending and troponin stabilizing/downtrending - net negative 950 balance today Objective Last 24 Hour Vital Signs Date Time Temp Pulse Resp B/P (MAP) Pulse Ox O2 Delivery O2 Flow Rate FiO2 12/31/17 21:39 136/79 12/31/17 20:00 79 12/31/17 20:00 98.2 77 20 124/87 92 Room Air 98.2 12/31/17 19:17 97.5 12/31/17 17:47 97.5 12/31/17 16:00 97.5 79 18 141/85 97 Room Air 97.5 12/31/17 16:00 81 12/31/17 13:35 141/82 12/31/17 12:00 98.1 74 18 141/82 95 Room Air 98.1 12/31/17 12:00 73 12/31/17 08:32 80 129/66 12/31/17 08:31 80 12/31/17 08:31 129/66 12/31/17 08:25 Nasal Cannula 2.0 28 12/31/17 08:25 82 20 Nasal Cannula 2.0 28 12/31/17 08:25 95 Nasal Cannula 2.0 28 12/31/17 08:00 80 12/31/17 08:00 97.9 80 18 129/66 95 Nasal Cannula 3.0 97.9 12/31/17 05:40 126/73 12/31/17 04:00 68 12/31/17 04:00 97.7 70 20 118/81 98 Nasal Cannula 3.0 97.7 12/31/17 00:00 97.3 71 20 115/62 95 Nasal Cannula 3.0 97.3 12/31/17 00:00 70 Intake and Output 12/30/17 12/31/17 19:00 07:00 Intake Total 600 ml Output Total 650 ml 900 ml Balance -650 ml -300 ml Intake Oral 600 ml Output Urine Total 650 ml 900 ml # Voids 2 3 Laboratory Tests 12/31/17 06:50: White Blood Count 10.3, Red Blood Count 5.59, Hemoglobin 15.0, Hematocrit 46.4, Mean Corpuscular Volume 83, Mean Corpuscular Hemoglobin 26.7L, Mean Corpuscular Hemoglobin Concent 32.2, Red Cell Distribution Width 15.3H, Platelet Count 288, Mean Platelet Volume 7.0, Neutrophils (%) (Auto) 64.3, Lymphocytes (%) (Auto) 21.9, Monocytes (%) (Auto) 7.4, Eosinophils (%) (Auto) 6.0H, Basophils (%) (Auto ) 0.4, Sodium Level 136, Potassium Level 3.4L, Chloride Level 101, Carbon Dioxide Level 26, Anion Gap 9, Blood Urea Nitrogen 37H, Creatinine 2.0H, Estimat Glomerular Filtration Rate 34.9, Glucose Level 132H, Hemoglobin A1c 6.7H , Calcium Level 8.9, Phosphorus Level 4.5, Magnesium Level 1.9, Triglycerides Level 91, Cholesterol Level 152, LDL Cholesterol 117H, HDL Cholesterol 23L, Cholesterol/HDL Ratio 6.6H, Thyroid Stimulating Hormone (TSH) 3.232 12/31/17 18:00: Digoxin Level 0.4L Height (Feet): 5 Height (Inches): 9.00 Weight (Pounds): 270 General Appearance: no apparent distress EENT: PERRL/EOMI, normal ENT inspection Neck: non-tender, normal alignment Cardiovascular: normal peripheral pulses, normal rate, regular rhythm Respiratory/Chest: chest wall non-tender, lungs clear, normal breath sounds Abdomen: normal bowel sounds, non tender, soft Extremities: normal range of motion, non-tender Neurologic: marble polisher hand II-XII grossly normal, no motor/sensory deficits, alert, oriented x 3 Skin: normal pigmentation, warm/dry Tara Weinstein N.P. Dec 31, 2017 23:03
[2018-01-01] VITALS: BP 107/55
[2018-01-01 04:00] VITALS: BP 125/86
[2018-01-01] MEDS: HydrALAZINE 50mg tab ORAL SCH (06:41)
[2018-01-01 07:59] VITALS: BP 143/71
[2018-01-01 08:00] VITALS: BP 143/71
[2018-01-01] MEDS: Heparin 5000 units/ml inj SUBQ SCH (08:14)
[2018-01-01] MEDS: Furosemide 40mg tab ORAL SCH (08:15)
[2018-01-01] MEDS: Azithromycin 250mg tab ORAL SCH (08:16)
[2018-01-01 08:17] VITALS: BP 143/71
[2018-01-01] MEDS: Spironolactone 25mg tab ORAL SCH (08:17)
[2018-01-01] MEDS: Flonase Nasal Inhaler 16gm NASAL SCH (08:20)
--- NOTE | 2018-01-02 08:26 | Discharge Summary ---
Discharge Summary Discharge Summary Discharge Summary DATE OF ADMISSION: 12/29/2017 DATE OF DISCHARGE/signed AGAINST MEDICAL ADVICE: 01/01/2018 REASON FOR ADMISSION: 58 years old male with a history of hypertension, congestive heart failure, psychiatric history, substance-abuse and opioid dependency, presented to emergency department with complaint of shortness of breath. Patient reported that his symptoms started after smoking cigarette. Patient reported noncompliance with medication regimen. Patient reported intermittent chest pain. Patient reported bilateral lower extremities swelling, orthopnea, paroxysmal nocturnal dyspnea. Patient complained of bleeding lesion in the mouth. He denied nausea, vomiting ,fevers, chills, abdominal pain and cough. Patient required placement on 4 L of supplemental oxygen via nasal cannula , pulse oximetry - 98%. Blood pressure was 200/104. Urine tox screen was positive for cocaine. Chest x-ray revealed congestive heart failure. Troponin elevated -0.166. ProBNP -56997. In emergency department patient was given IV Lasix, IV hydralazine , aspirin and was admitted to telemetry floor for further management with diagnoses of acute on chronic combined systolic and diastolic CHF, NSTEMI, hypertensive urgency, acute kidney injury versus acute kidney injury on chronic kidney disease, cardiorenal syndrome, cocaine abuse, hypertensive heart disease, mass in oral cavity. CONSULTANTS: improvement advisor Dr. Gannon surgery Dr. Kramer [facility] COURSE: Patient admitted to telemetry floor. Cardiology consulted. Serial troponin and EKG were trending . Echocardiogram revealed mild global ventricular hypokinesis with left ventricular ejection fraction 30-35%. No evidence of pericardial effusion. Grade 2 diastolic dysfunction. Right ventricular systolic pressure of 22. Patient was started on diuresis with close monitoring of volumes and cardiorenal parameters. Patient was started on aspirin and statin. Home medications such as the MAGALIE inhibitor, digoxin and Aldactone were continued. Venous duplex bilateral lower extremities was negative. DVT prophylaxis provided. Paper Ruler seen and evaluated the patient.Per improvement advisor level of troponin elevation were flat, troponin down from initial 0.166 to 0.084. At that time patient did not complain of any chest pain. Paper Ruler recommended avoiding beta arsen due to history off cocaine abuse and urine tox screen positive for cocaine. Paper Ruler reviewed EKG which showed sinus rhythm with left ventricular hypertrophy and left axis deviation but no acute ST-T wave abnormality. I He recommended continue aspirin. In terms of congestive heart failure management was provided with MAGALIE inhibitor, digoxin, diuresis with Lasix and Aldactone and hydralazine . Blood pressure was managed with the current regimen of antihypertensive with addition of Norvasc. Supplemental oxygen provided as needed to keep pulse oximetry above 92%. Pulmonary toilet provided as needed via handheld nebulizing therapy with DuoNeb. Surgery consulted for bleeding lesion on the roof of the mouth. Surgeon seen the patient for bleeding fungating mass in mouth. According to surgeon , mass in oral cavity with oozing of blood would potentially lead to aspiration. Given tobacco history, could potentially be malignant or possibly be torus palatinus. Surgeon recommended close monitoring for 24 hours. If oozing continued, plan was for hemostasis and excisional biopsy. If bleeding stops, patient to follow-up with the surgeon as outpatient and to be scheduled for biopsy. Oozing stopped. Patient was recommended to follow up with surgeon as outpatient for biopsy of oral mass to rule out potential malignancy. Pain management provided. Supportive care provided. Bowel regimen instituted. Patient was counseled on abstinence from street drugs and smoking cessation. Patient was also counseled on medication compliance. Seroquel was continued. Patient decided to sign AGAINST MEDICAL ADVICE. The risks and consequences of signing AGAINST MEDICAL ADVICE were discussed with patient in detail. Patient verbalized understanding, nevertheless signed AMA form and left. FINAL DIAGNOSES: Acute on chronic systolic and diastolic congestive heart failure NSTEMI Hypertensive urgency Hypertensive heart disease Acute kidney injury versus acute kidney injury on chronic kidney disease Cardiorenal syndrome Cocaine abuse Tobacco abuse Mass in oral cavity I have been assigned to dictate discharge summary for this account. I was not involved in the patient's management. Vita Gonzalez NP ([facility]) Jan 02, 2018 08:26
--- NOTE | 2018-01-03 08:28 | Cardiology Report ---
APPROVED REPORT EXAM: Two-dimensional and M-mode echocardiogram with Doppler and color Doppler. INDICATION OTHER M-Mode DIMENSIONS IVSd1.5 (0.7-1.1cm)Left Atrium (MM)4.4 (1.6-4.0cm) LVDd6.3 (3.5-5.6cm)Aortic Root4.4 (2.0-3.7cm) PWd1.6 (0.7-1.1cm)Aortic Cusp Exc.1.9 (1.5-2.0cm) IVSs1.9 cm LVDs5.3 (2.5-4.0cm) PWs2.1 cm Mild left ventricular enlargements . Mild gloabal ventricular hypokinesis . Left ventricular ejection fraction estimated to be 35 %. Mild left ventricular hypertrophy by 2-D. No evidence of pericardial effusion. Mild left atrial enlargements . Right cardiac chamber sizes are within normal limits. Focal aortic valve sclerosis with adequate cusp excursion. Moderately Thickened mitral valve leaflets with normal excursion. Moderately Mitral annulus and aortic root calcification. Pulmonic valve not well visualized. Normal tricuspid valve structure. IVC dilated at 3.4 cm without physiologic collapse suggestive of increased RA pressure. A color flow and spectral Doppler study was performed and revealed: trace aortic regurgitation. Mild mitral regurgitation. Mitral inflow velocities indicates possible pseudo normalization pattern implying moderately elevated left atrial pressure (Grade II ) Trace to mild tricuspid regurgitation. Tricuspid systolic velocities suggests peak right ventricular systolic pressure of 22 mmHg, No Pulmonic regurgitation present.
== END 2018-01-01 09:32 | disposition left against medical advice (07) | DRG 280 ==
LOC: EDBD 17:49 → EMR 18:52 → EDBEDREQ 20:44 → 2E 20:50
DX: I13.0 Hypertensive heart and chronic kidney disease with heart failure and stage 1 through stage 4 chronic kidney disease, or unspecified chronic kidney disease (principal); I21.4 Non-ST elevation (NSTEMI) myocardial infarction; I50.43 Acute on chronic combined systolic (congestive) and diastolic (congestive) heart failure; N17.9 Acute kidney failure, unspecified; F11.20 Opioid dependence, uncomplicated; N18.9 Chronic kidney disease, unspecified; I16.0 Hypertensive urgency; F17.200 Nicotine dependence, unspecified, uncomplicated; K13.79 Other lesions of oral mucosa; F14.10 Cocaine abuse, uncomplicated; F29 Unspecified psychosis not due to a substance or known physiological condition; E87.6 Hypokalemia; F19.10 Other psychoactive substance abuse, uncomplicated
CPT/HCPCS: 36415; 71045; 80048; 80053; 80061; 80162; 80307; 82248; 82550; 82553; 83036; 83735; 83880; 84100; 84443; 84484; 85025; 93005; 93306; 93970; 94640; 94664; 94760; 99285; J7620; J8499